=== PATIENT | female | born 1965 | race Two or more races ===

== ENCOUNTER 2019-04-16 09:56 | Emergency (ER) | payer MEDICAID ==
[~2019-04-16] VITALS: Ht 162.6 cm; Wt 68.0 kg
[2019-04-16 11:18] LABS: MICROSCOPIC NOT IND
[2019-04-16 11:25] LABS: BASOPHILS # (AUTO) 0.02 x10^3/uL (0-0.1); BASOPHILS % (AUTO) 0 % (0-1); EOSINOPHILS # (AUTO) 0.06 x10^3/uL (0-0.4); EOSINOPHILS % (AUTO) 1 % (1-7); LYMPHOCYTES % (AUTO) 27 % (22-44); MD NO; MEAN CORPUSCULAR HEMOGLOBIN 31.8 pg (27.0-34.8); MEAN CORPUSCULAR HGB CONC 33.9 g/dL (32.4-35.8); MEAN CORPUSCULAR VOLUME 93.8 fL (80-100); MEAN PLATELET VOLUME 8.3 fL (7.4-10.4); MONOCYTES # (AUTO) 0.34 x10^3/uL (0.2-0.8); MONOCYTES % (AUTO) 6 % (2-9); NEUTROPHILS # (AUTO) 3.84 x10^3/uL (1.8-6.8); NEUTROPHILS % (AUTO) 66 % (42-75); PLATELET COUNT 248 x10^3/uL (130-400); RED BLOOD COUNT 3.98 x10^6/uL (3.82-5.3); RED CELL DISTRIBUTION WIDTH 12.4 % (9.6-15.2)
[2019-04-16 11:27] LABS: CULTURE INDICATED? NO
[2019-04-16 11:33] LABS: ALBUMIN 3.7 g/dL (3.4-5.0); ANION GAP 6 mmol/L (5-15); CALCIUM 8.4 mg/dL (8.5-10.1); CHLORIDE 112 mmol/L (98-107); CREATININE 0.83 mg/dL (0.55-1.02)
[2019-04-16 11:36] LABS: ALANINE AMINOTRANSFERASE 33 U/L (12-78); ALKALINE PHOSPHATASE 94 U/L (45-117); BILIRUBIN,TOTAL 0.3 mg/dL (0.2-1.0); TOTAL PROTEIN 7.1 g/dL (6.4-8.2)
[2019-04-16 11:42] VITALS: BP 124/59
== END 2019-04-16 12:19 | disposition home or self-care (01) ==
LOC: ED 10:36
DX: R10.32 Left lower quadrant pain (principal)
CPT/HCPCS: 36415; 71045; 80053; 81003; 85025; 99284

== ENCOUNTER 2019-06-05 18:31 | Emergency (ER) | payer MEDICAID ==
[~2019-06-05] VITALS: Ht 162.6 cm; Wt 67.4 kg
--- NOTE | 2019-06-05 19:03 | NUR ---
Pt alert and resting on gurney. Pt reports back pain x1 week and bilateral upper quadrant pain x4 days that has worsened today. No V/D. Pt tender to upper qudrants. Pt in gown, and on pulse ox/HR monitor. Call light within reach. Pt aware of need for urine sample.
[2019-06-05] MEDS ORDERED: MAALOX/HYOSCYAMINE/LIDOCAINE 45 ML BTL ONE (19:11)
[2019-06-05] MEDS ORDERED: MAALOX/HYOSCYAMINE/LIDOCAINE 45 ML BTL PO ONE (19:30)
[2019-06-05 19:31] LABS: BASOPHILS # (AUTO) 0.02 x10^3/uL (0-0.1); BASOPHILS % (AUTO) 0 % (0-1); EOSINOPHILS # (AUTO) 0.06 x10^3/uL (0-0.4); EOSINOPHILS % (AUTO) 1 % (1-7); LYMPHOCYTES % (AUTO) 30 % (22-44); MD NO; MEAN CORPUSCULAR HEMOGLOBIN 31.9 pg (27.0-34.8); MEAN CORPUSCULAR HGB CONC 34.4 g/dL (32.4-35.8); MEAN CORPUSCULAR VOLUME 92.7 fL (80-100); MEAN PLATELET VOLUME 8.9 fL (7.4-10.4); MONOCYTES # (AUTO) 0.53 x10^3/uL (0.2-0.8); MONOCYTES % (AUTO) 7 % (2-9); NEUTROPHILS # (AUTO) 5.08 x10^3/uL (1.8-6.8); NEUTROPHILS % (AUTO) 63 % (42-75); PLATELET COUNT 287 x10^3/uL (130-400); RED BLOOD COUNT 4.17 x10^6/uL (3.82-5.3); RED CELL DISTRIBUTION WIDTH 12.7 % (9.6-15.2)
--- NOTE | 2019-06-05 19:32 | NUR ---
Pt in US
[2019-06-05 19:33] LABS: ALANINE AMINOTRANSFERASE 31 U/L (12-78); ALBUMIN 4.1 g/dL (3.4-5.0); ANION GAP 6 mmol/L (5-15); CALCIUM 9.5 mg/dL (8.5-10.1); CHLORIDE 109 mmol/L (98-107); CREATININE 0.82 mg/dL (0.55-1.02)
[2019-06-05 19:35] LABS: ALKALINE PHOSPHATASE 106 U/L (45-117); BILIRUBIN,TOTAL 0.3 mg/dL (0.2-1.0); TOTAL PROTEIN 7.5 g/dL (6.4-8.2)
--- NOTE | 2019-06-05 19:49 | NUR ---
Pt returned from [facility]
--- NOTE | 2019-06-05 20:27 | NUR ---
OSMAR RN: ASKED BY PRIMARY RN IT START IV. 20 G IN R AC.
--- NOTE | 2019-06-05 20:28 | NUR ---
PT TO CT NOW
--- NOTE | 2019-06-05 20:36 | NUR ---
PT RETURND FROM CT AT THIS TIME.
--- NOTE | 2019-06-05 20:44 | NUR ---
Pt reports improvement in abd pain at this time. VS retaken. Call light within reach.
[2019-06-05 21:30] VITALS: BP 141/60
--- NOTE | 2019-06-05 21:39 | NUR ---
Pt dc'd to self care. Discharge teaching provided including, prescriptions, diet, pain control and follow-up. Pt VU. Pt alert and in NAD. Pt ambulated out of ER.
[2019-06-05] MEDS ORDERED: OMNIPAQUE 350 MG/ML, 100ML BOTTLE ONE (23:43)
== END 2019-06-05 21:47 | disposition home or self-care (01) ==
LOC: ED 19:33
DX: K29.00 Acute gastritis without bleeding (principal)
CPT/HCPCS: 36415; 74177; 76700; 80053; 83690; 85025; 93005; 99284; Q9967

== ENCOUNTER 2019-09-19 17:31 | Emergency (ER) | payer MEDICAID ==
[~2019-09-19] VITALS: Ht 162.6 cm; Wt 68.0 kg
[2019-09-19] MEDS ORDERED: METHYLNALTREXONE 12 MG/0.6 ML SYR SQ ONE ×2 (18:05→18:30)
--- NOTE | 2019-09-19 18:35 | NUR ---
B[place]on RN. Pt ok for D/C. Pt given D/C instructions, verbalized understanding. Pt has all own belongings upon d/c, steady gait.
[2019-09-19 18:36] VITALS: BP 124/73
== END 2019-09-19 18:43 | disposition home or self-care (01) ==
LOC: ED 17:59
DX: K59.00 Constipation, unspecified (principal); R10.9 Unspecified abdominal pain
CPT/HCPCS: 96372; 99283

== ENCOUNTER 2020-06-09 19:21 | Emergency (ER) | payer MEDICAID ==
[~2020-06-09] VITALS: Ht 162.6 cm; Wt 68.9 kg
[2020-06-09] MEDS ORDERED: GABA-827 PO (19:41)
--- NOTE | 2020-06-09 19:42 | NUR ---
[facility] IN [facility] EVAL PLAN LABS NSR ON MONITOR NO SOB CALM/COOP VSS CALL BOSE REPORT TO KIRSTIE VALENCIA.
[2020-06-09 20:34] LABS: BASOPHILS % (AUTO) 1 % (0-1); EOSINOPHILS % (AUTO) 0 % (1-7); LYMPHOCYTES % (AUTO) 22 % (22-44); MEAN CORPUSCULAR HGB CONC 34.6 g/dL (32.4-35.8); MEAN PLATELET VOLUME 8.3 fL (7.4-10.4); MONOCYTES % (AUTO) 5 % (2-9); NEUTROPHILS % (AUTO) 72 % (42-75); PLATELET COUNT 275 x10^3/uL (130-400); RED BLOOD COUNT 4.31 x10^6/uL (3.82-5.3); RED CELL DISTRIBUTION WIDTH 13.2 % (9.6-15.2)
[2020-06-09 20:35] LABS: MD NO
[2020-06-09 20:42] LABS: ALBUMIN 3.7 g/dL (3.4-5.0); ANION GAP 5 mmol/L (5-15); CALCIUM 9.1 mg/dL (8.5-10.1); CHLORIDE 110 mmol/L (98-107)
--- NOTE | 2020-06-09 20:45 | NUR ---
PATIENT SITTING IN RNEY TALKING ON PHONE, LIBBYN, JUSTICES, CALL LIGHT WITHIN REACH, NO FURTHER NEEDS AT THIS TIME.
[2020-06-09 20:47] LABS: ALANINE AMINOTRANSFERASE 63 U/L (12-78); ALKALINE PHOSPHATASE 125 U/L (45-117); BILIRUBIN,TOTAL 0.4 mg/dL (0.2-1.0); CREATININE 0.74 mg/dL (0.55-1.02); TOTAL PROTEIN 7.4 g/dL (6.4-8.2); TROPONIN I < 0.015 ng/mL (0.000-0.045)
[2020-06-09] MEDS ORDERED: MAALOX/HYOSCYAMINE/LIDOCAINE 45 ML BTL ONE (21:14)
--- NOTE | 2020-06-09 21:17 | NUR ---
PATIENT MEDICATED PER eMAR, WALKED TO BATHROOM WITH STEADY GAIT.
[2020-06-09] MEDS ORDERED: MAALOX/HYOSCYAMINE/LIDOCAINE 45 ML BTL PO ONE (21:30)
--- NOTE | 2020-06-09 21:34 | NUR ---
ER PROVIDER AT BEDSIDE TO DISCUSS POC.
[2020-06-09 21:38] VITALS: BP 137/64
--- NOTE | 2020-06-09 22:01 | NUR ---
Patient given discharge instructions and prescriptions and they have confirmed that they understand the instructions. Patient stable and ambulatory with steady gait from ED to private vehicle.
== END 2020-06-09 22:02 | disposition home or self-care (01) ==
LOC: ED 21:24
DX: R07.2 Precordial pain (principal); R07.89 Other chest pain
CPT/HCPCS: 36415; 71045; 80053; 84484; 85025; 93005; 99285